=== PATIENT | male | born 1955 | race Caucasian/White ===

== ENCOUNTER 2018-01-24 14:21 | Emergency (ER) | payer SELFPAY ==
[2018-01-24 14:30] VITALS: BMI 22.4
--- NOTE | 2018-01-24 14:34 | PDOC ---
Rapid Medical Evaluation Chief Complaint: Wound Time Seen by Provider: 01/24/18 14:29 Medical Evaluation: 01/24/18 14:29 62 year old male c/o right arm redness and pain x 2 days now with fever x 1 days. TMAX 101 at home took tylenol at home " i think i have cellulitis" PE: patient alert ox3. + right forearm swelling A: cellulilitis P: labs cultures. IV patient to the ER for the further management of care, Discharge Disposition - Diagnosis Cellulitis Qualifiers: Site of cellulitis: extremity Site of cellulitis of extremity: upper extremity Laterality: right Qualified Code(s): L03.113 - Cellulitis of right upper limb - Referrals - Patient Instructions - Post Discharge Activity
--- NOTE | 2018-01-24 15:18 | PDOC ---
Attending Attestation - HPI HPI: 01/24/18 15:59 62 y/o male with a pmh of asthma who presents to the emergency department for evaluation of right forearm rash with pain and redness. Patient reports feeling a prick on right arm and subsequently developing a rash after picking up a pile of leaves and thorns. He reports using cortisone cream and antihistamine cream with relief to inflammation. <Traci Murray - Last Filed: 01/24/18 15:59> - Resident Resident Name: Esteban Sherwood - ED Attending Attestation I have performed the following: I have examined & evaluated the patient, The case was reviewed & discussed with the resident, I agree w/resident's findings & plan, Exceptions are as noted - Physicial Exam PE: GENERAL: Awake, alert, and fully oriented, in no acute distress HEAD: No signs of trauma EYES: PERRLA, EOMI, sclera anicteric, conjunctiva clear ENT: Auricles normal inspection, hearing grossly normal, nares patent, oropharynx clear without exudates. Moist mucosa NECK: Normal ROM, supple, no lymphadenopathy, JVD, or masses LUNGS: Breath sounds equal, clear to auscultation bilaterally. No wheezes, and no crackles HEART: Regular rate and rhythm, normal S1 and S2, no murmurs, rubs or gallops ABDOMEN: Soft, nontender, normoactive bowel sounds. No guarding, no rebound. No masses EXTREMITIES: Normal range of motion, no edema. No clubbing or cyanosis. No cords, erythema, or tenderness NEUROLOGICAL: Cranial nerves II through XII grossly intact. Normal speech, normal gait SKIN: Warm, Dry, normal turgor. R forearm with area of erythema, mild induration , no fluctuance. No wheals. +Excoriations. - Medical Decision Making The rash was outlined by Dr. Sherwood on initial evaluation and was extending beyond the line in ED. Cellulitis is most likely dx, as it is painful, warm, and slightly indurated. Lyme titers pending. Will treat with IV abx in ED. If it continues to extend, will likely have to be admitted. If not, will DC with PO abx. <Ana Luisa Moser - Last Filed: 01/24/18 16:09> Attestations - Attestations Documentation prepared by Traci Murray, acting as medical data entry clerk for Ana Luisa Moser MD. <Traci Murray - Last Filed: 01/24/18 15:59>
[2018-01-24 15:33] LABS: BASO % 0.5 % (0-2.0); EOS % 0.4 % (0-4.5); HEMATOCRIT 41.5 % (35.4-49); HEMOGLOBIN 14.2 GM/dL (11.7-16.9); LYMPH % 4.2 % (8-40); MCH 30.3 pg (25.7-33.7); MCHC 34.2 g/dl (32.0-35.9); MEAN CELL VOLUME 88.7 fl (80-96); MEAN PLT VOLUME 9.3 fl (7.5-11.1); MONO % 3.4 % (3.8-10.2); NEUT % 91.5 % (42.8-82.8); PLATELET COUNT 192 K/MM3 (134-434); RBC 4.68 M/mm3 (4.00-5.60); RDW 13.8 % (11.9-15.9)
[2018-01-24 15:37] LABS: VENOUS PC02 39.6 mmHg (38-52); VENOUS PH 7.42 (7.32-7.42); VENOUS PO2 39.5 mmHg (28-48)
[2018-01-24 15:45] LABS: INR 1.05 (0.83-1.09); PROTHROMBIN TIME (PATIENT) 12.4 SEC (9.7-13.0)
--- NOTE | 2018-01-24 15:46 | PDOC ---
History of Present Illness - General Chief Complaint: Rash Stated Complaint: RASH Time Seen by Provider: 01/24/18 14:29 - History of Present Illness Initial Comments: 01/24/18 15:41 62m with pmh of asthma and hypothyroidism presenting for rash on his right forearm spreading for the past 3 days after he was picking up leave piles in his backyard. There were thorns amongst the pile and he felt many pricks over his arms. The rash is itchy and feels warm. \He applied cortisone cream and antihuistamine cream to the rash to relieve the inflammation and took some oral prednisone yesterday as well with some relief. Past History - Past Medical History Allergies/Adverse Reactions: Allergies Allergy/AdvReac Type Severity Reaction Status Date / Time No Known Allergies Allergy Verified 01/24/18 14:30 Home Medications: Ambulatory Orders Albuterol Sulfate Inhaler - [Ventolin Hfa Inhaler -] 1 - 2 inh PO Q4H PRN Cephalexin Monohydrate [Keflex -] 500 mg PO BID 10 Days #20 capsule 01/24/18 Fluticasone/Salmeterol [Advair 250-50 Diskus] 0 each IH DAILY 01/24/18 Levothyroxine [Synthroid -] 90 mcg PO DAILY 01/24/18 Sulfamethoxazole/Trimethoprim [Bactrim Ds -] 1 tab PO BID #14 tablet 01/24/18 COPD: No Thyroid Disease: Yes - Surgical History Abdominal Surgery: Yes (HERNIA) - Suicide/Smoking/Psychosocial Hx Smoking History: Never smoked Review of Systems - Review of Systems Able to Perform ROS?: Yes Is the patient limited Latvian proficient: No Constitutional: Yes: Fever HEENTM: No: Symptoms Reported Respiratory: No: Symptoms reported Cardiac (ROS): No: Symptoms Reported ABD/GI: No: Symptoms Reported : No: Symptoms Reported Musculoskeletal: No: Symptoms Reported Integumentary: Yes: Pruritus, Rash Neurological: No: Symptoms reported All Other Systems: Reviewed and Negative *Physical Exam - Vital Signs Last Vital Signs Temp Pulse Resp BP Pulse Ox 99.1 F 98 H 18 137/51 L 99 01/24/18 14:27 01/24/18 14:27 01/24/18 14:27 01/24/18 14:27 01/24/18 14:27 - Physical Exam General Appearance: Yes: Nourished, Appropriately Dressed. No: Apparent Distress, Severe Distress HEENT: positive: EOMI, TEENA, Normal ENT Inspection Respiratory/Chest: positive: Lungs Clear, Normal Breath Sounds. negative: Chest Tender, Respiratory Distress Cardiovascular: positive: Regular Rhythm, Regular Rate, S1, S2 Gastrointestinal/Abdominal: positive: Normal Bowel Sounds, Flat, Soft. negative : Tender Extremity: positive: Other (Erythematous target rash with central clearing over right forearm, with small puncture site at center. ) Integumentary: positive: Rash (Erythematous target rash with central clearing over right forearm, with small puncture site at center. ) Neurologic: positive: Fully Oriented, Alert, Normal Mood/Affect, Normal Response , Motor Strength 07/10 ED Treatment Course - LABORATORY CBC & Chemistry Diagram: 01/24/18 15:20 01/24/18 15:20 - ADDITIONAL ORDERS Additional order review: Laboratory Results 01/24/18 15:34 VBG pH 7.42 POC VBG pCO2 39.6 POC VBG pO2 39.5 Mixed VBG HCO3 25.2 H 01/24/18 15:20 RBC 4.68 MCV 88.7 MCHC 34.2 RDW 13.8 MPV 9.3 Neutrophils % 91.5 H Lymphocytes % 4.2 L Monocytes % 3.4 L Eosinophils % 0.4 Basophils % 0.5 Medical Decision Making - Medical Decision Making 01/24/18 15:46 62m with target rash after working in backyard. Acute Lyme infection vs cellulitis vs poison raina Septic workup with blood cultures ordered by RME. Adding Lyme titer 01/24/18 17:41 Will send patient home with Follow up with call back for titer *DC/Admit/Observation/Transfer Diagnosis at time of Disposition: Cellulitis Qualifiers: Site of cellulitis: extremity Site of cellulitis of extremity: upper extremity Laterality: right Qualified Code(s): L03.113 - Cellulitis of right upper limb - Discharge Dispostion Disposition: HOME Condition at time of disposition: Stable Decision to Admit order: No - Prescriptions Prescriptions: Cephalexin Monohydrate [Keflex -] 500 mg PO BID 10 Days #20 capsule Sulfamethoxazole/Trimethoprim [Bactrim Ds -] 1 tab PO BID #14 tablet - Referrals Schedule a call back: Call back when [facility] lab are back - Patient Instructions Printed Discharge Instructions: DI for Cellulitis -- Adult Additional Instructions: utilization supervisor your prescription at the pharmacy. Come back to the ER for any new, worsening or concerning symptom. - Post Discharge Activity
[2018-01-24 15:47] LABS: ACTIVATED PTT 35.5 SECONDS (25.2-36.5)
[2018-01-24 15:55] LABS: ALK PHOS 95 U/L (45-117); ANION GAP 10 MMOL/L (8-16); BILIRUBIN,TOTAL 0.8 mg/dL (0.2-1); BLOOD UREA NITROGEN 17 mg/dL (7-18); CALCIUM 11.1 mg/dL (8.5-10.1); CHLORIDE 101 mmol/L (98-107); CO2 26 mmol/L (21-32); CREATININE 0.9 mg/dL (0.55-1.3); GLUCOSE,RANDOM 122 mg/dL (74-106); POTASSIUM 4.3 mmol/L (3.5-5.1); SGOT/AST 23 U/L (15-37); SGPT/ALT 35 U/L (13-61); SODIUM 137 mmol/L (136-145); TOT PROT 8.4 g/dl (6.4-8.2)
[2018-01-24] MEDS ORDERED: VANCOMYCIN 1 GRAM (PRE-DOCKED) 1,000 MG/250 ML BAG IVPB ONE ×2 (15:55→15:59)
[2018-01-24] MEDS ORDERED: DIPHTH,PERTUSS(ACELL),TET 0.5 ML DISP.SYRIN IM ONE (15:59)
[2018-01-24 16:10] LABS: URINE APPEARANCE CLEAR; URINE BILIRUBIN NEGATIVE (<2.0 mg/dL); URINE COLOR YELLOW; URINE GLUCOSE (UA) NEGATIVE (NEGATIVE); URINE KETONE NEGATIVE (NEGATIVE); URINE LEUK ESTERASE NEGATIVE (NEGATIVE); URINE NITRITE NEGATIVE (NEGATIVE); URINE PROTEIN NEGATIVE (NEGATIVE); URINE UROBILINOGEN NEGATIVE mg/dL (0.2-1.0)
[2018-01-24 18:12] VITALS: BP 116/71; PULSE 90; TEMP 98.8
[2018-01-24 19:35] LABS: PLATELET ESTIMATE ADEQUATE
--- NOTE | 2018-01-25 21:20 | PDOC ---
*Physical Exam - Vital Signs Last Vital Signs Temp Pulse Resp BP Pulse Ox 98.8 F 90 18 116/71 99 01/24/18 18:11 01/24/18 18:11 01/24/18 18:11 01/24/18 18:11 01/24/18 18:11 ED Treatment Course - LABORATORY CBC & Chemistry Diagram: 01/24/18 15:20 01/24/18 15:20 - ADDITIONAL ORDERS Additional order review: 01/24/18 15:20 Blood Culture - Preliminary Blood - Peripheral Venous Pending Organism 01/24/18 15:20 Blood Culture - Preliminary Blood - Peripheral Venous NO GROWTH OBTAINED AFTER 24 HOURS, INCUBATION TO CONTINUE FOR 4 DAYS. 01/24/18 15:20 RBC 4.68 MCV 88.7 MCHC 34.2 RDW 13.8 MPV 9.3 Neutrophils % 91.5 H Lymphocytes % 4.2 L Monocytes % 3.4 L Eosinophils % 0.4 Basophils % 0.5 - Medications Given in the ED: ED Medications Discontinued Medications Generic Name Dose Route Start Last Admin Trade Name Jaguar PRN Reason Stop Dose Admin Vancomycin HCl 1,000 mg 01/24/18 15:55 01/24/18 16:00 Vancomycin (Pre-Docked) IVPB 01/24/18 15:56 1,000 mg ONCE ONE Administration Protocol Medical Decision Making - Medical Decision Making 01/25/18 21:15 I had spoken to the patient as I received a positive blood culture. The patient reports that he feels significantly better. Stated that his rash improved by three quarters. No fevers and pain is improved. At this time, pt reports that he's adherent to his medications. I advised him that if he develops fever or rash that he should return to the ER. I will place the patient on a call list for the ICU CLERK or PA to check in on him in a day or two. *DC/Admit/Observation/Transfer Diagnosis at time of Disposition: Cellulitis Qualifiers: Site of cellulitis: extremity Site of cellulitis of extremity: upper extremity Laterality: right Qualified Code(s): L03.113 - Cellulitis of right upper limb - Discharge Dispostion Disposition: HOME Condition at time of disposition: Stable - Prescriptions Prescriptions: Cephalexin Monohydrate [Keflex -] 500 mg PO BID 10 Days #20 capsule Sulfamethoxazole/Trimethoprim [Bactrim Ds -] 1 tab PO BID #14 tablet - Referrals Schedule a call back: Call back when [facility]ym[facility] lab are back - Patient Instructions Printed Discharge Instructions: DI for Cellulitis -- Adult Additional Instructions: splicing supervisor your prescription at the pharmacy. Come back to the ER for any new, worsening or concerning symptom. - Post Discharge Activity
== END 2018-01-24 18:13 | disposition home or self-care (01) ==
LOC: JER 14:21
DX: L03.113 Cellulitis of right upper limb (principal); E03.9 Hypothyroidism, unspecified; J45.909 Unspecified asthma, uncomplicated
CPT/HCPCS: 36415; 80053; 81003; 82803; 83605; 84484; 85025; 85610; 85730; 86618; 87040; 87086; 99282-25